=== PATIENT | female | born 1985 | race Caucasian/White ===

== ENCOUNTER 2019-01-02 13:50 | Emergency (ER) | payer OTHER, SELFPAY ==
[2019-01-02] MEDS ORDERED: Ketorolac Tromethamine 60 MG/2 ML VIAL ONE (14:06)
--- NOTE | 2019-01-02 14:40 | RAD ---
XR Ribs Rt>= 2 View W/PA CXR HISTORY: Injury, right-sided chest pain, rib pain COMPARISON: None. FINDINGS: The heart size is normal. The lungs are well expanded and clear. No right-sided rib fractur e is seen. IMPRESSION: No acute process.
== END 2019-01-02 14:47 | disposition home or self-care (01) ==
LOC: MADERS 13:50
DX: S29.011A Strain of muscle and tendon of front wall of thorax, initial encounter (principal); F17.210 Nicotine dependence, cigarettes, uncomplicated; Z71.6 Tobacco abuse counseling; X50.1XXA Overexertion from prolonged static or awkward postures, initial encounter; Y93.72 Activity, wrestling
CPT/HCPCS: 96372; 99406; J1885

== ENCOUNTER 2019-10-17 10:15 | Emergency (ER) | payer SELFPAY ==
[~2019-10-17 10:15] MED LIST: Sodium Chloride Irrig Solution 250 ML BOT ONE
[2019-10-17] MEDS ORDERED: Lidocaine 1% 20 ML MDV ONE (10:48)
[2019-10-17] MEDS ORDERED: Triple Antibiotic Oint 1 GM Packet ONE (10:58)
[2019-10-17] MEDS ORDERED: Clindamycin 150 MG CAP ONE (11:01)
[2019-10-17] MEDS ORDERED: Bacitracin 1 PK ONE ×2 (11:01)
[2019-10-17] MEDS ORDERED: Adacel (T-DAP) 0.5 ML SYRINGE ONE (11:05)
== END 2019-10-17 11:22 | disposition home or self-care (01) ==
LOC: MADERS 10:15
DX: N61.1 Abscess of the breast and nipple (principal); Z23 Encounter for immunization; F17.210 Nicotine dependence, cigarettes, uncomplicated
CPT/HCPCS: 10060; 90471; 90715; J2001

== ENCOUNTER 2021-05-31 08:30 | Emergency (ER) | payer MEDICAID, SELFPAY ==
[2021-06-01 07:56] LABS: SARS-CoV-2 PCR by NAA Not Detected (NotDetected)
== END 2021-05-31 09:40 | disposition home or self-care (01) ==
LOC: MADERS 08:30
DX: H65.91 Unspecified nonsuppurative otitis media, right ear (principal); J32.9 Chronic sinusitis, unspecified; F17.290 Nicotine dependence, other tobacco product, uncomplicated
CPT/HCPCS: 99406; U0003; U0005